=== PATIENT | female | born 1945 | race Caucasian/White ===

== ENCOUNTER 2023-07-14 13:26 | Emergency (ER) | payer BC ==
[~2023-07-14] VITALS: Ht 154.9 cm; Wt 65.8 kg
[2023-07-14 14:02] VITALS: BP_SYST 161; PULSE 77; RESP 16; TEMP 97.1; O2SAT 97
[2023-07-14] MEDS ORDERED: FLOEARD EACH EYE (15:24)
[2023-07-14 15:32] VITALS: BP_SYST 161; PULSE 70; RESP 18; TEMP 97.6; O2SAT 98
== END 2023-07-14 15:30 | disposition home or self-care (01) ==
LOC: SED 13:26
DX: H00.015 Hordeolum externum left lower eyelid (principal); H57.12 Ocular pain, left eye; Z79.899 Other long term (current) drug therapy
CPT/HCPCS: 99282